=== PATIENT | female | born 1950 | race Caucasian/White ===

== ENCOUNTER → 2017-02-24 | Outpatient (CLI) | payer OTHER ==
[~2017-02-24] MED LIST: ASPIRIN EC81 M1 PO; CLONAZEPAM 1 MG1 M1 PO; EFFIENT10 MG PO; LOPRESSOR25 PO; NORCO 5-325 TA1 EACH PO; ONDANSETRON HCL4 M2 PO; VITAMIN D 5050000 I1 PO; ZESTRIL5 MG PO; ZOCOR 20 MG TAB20 M1 PO; ZYRTEC10 M2 PO
== END ==
LOC: PUL 11:09
DX: J84.9 Interstitial pulmonary disease, unspecified (principal)